=== PATIENT | female | born 1985 | race Caucasian/White ===

== ENCOUNTER 2017-06-06 13:30 | Emergency (ER) | payer BC, MEDICAID ==
[~2017-06-06 13:30] MED LIST: AMOX125S2 PO; VIST25CA PO
[2017-06-06 13:45] VITALS: BP 125/70; PULSE 95; RESP 16; TEMP 98.9; O2SAT 100
[2017-06-06] MEDS ORDERED: SODIUM CHLORIDE 0.9% FLUSH 10 ML FLUSH IVF PRN (14:15)
[2017-06-06 14:33] LABS: AUTOMATED NEUTROPHIL # 4.5 TH/MM3 (1.8-7.7); BASOPHIL % 0.5 % (0.0-2.0); EOSINOPHIL # 0.1 TH/MM3 (0-0.4); EOSINOPHIL % 1.7 % (0.0-4.0); HEMATOCRIT 36.4 % (35.0-46.0); HEMO FLAGS DIFF FINAL; LYMPH % 26.6 % (9.0-44.0); LYMPHOCYTE # 1.8 TH/MM3 (1.0-4.8); MEAN CELL VOLUME 85.2 FL (80.0-100.0); MEAN CORPUSCULAR HEMOGLOBIN 28.1 PG (27.0-34.0); MONO % 5.7 % (0.0-8.0); NEUT % 65.5 % (16.0-70.0); PLATELET COUNT 173 TH/MM3 (150-450); RED BLOOD COUNT 4.27 MIL/MM3 (4.00-5.30); RED CELL DISTRIBUTION WIDTH 15.2 % (11.6-17.2); WHITE BLOOD COUNT 6.9 TH/MM3 (4.0-11.0)
[2017-06-06 14:50] LABS: ALT (GPT) 19 U/L (10-53); ANION GAP 7 MEQ/L (5-15); AST (GOT) 17 U/L (15-37); BICARBONATE 26.1 MEQ/L (21.0-32.0); BLOOD UREA NITROGEN 11 MG/DL (7-18); CHLORIDE 107 MEQ/L (98-107); GLOMERULAR FILTRATION RATE 86 ML/MIN (>89); POTASSIUM 3.6 MEQ/L (3.5-5.1); SODIUM (NA) 140 MEQ/L (136-145)
[2017-06-06 14:54] LABS: ALKALINE PHOSPHATASE 40 U/L (45-117); TOTAL BILIRUBIN ADULT 0.4 MG/DL (0.2-1.0)
--- NOTE | 2017-06-06 14:58 | PD ---
HPI Chief Complaint: Chest Pain Time Seen by Provider: 13:58 Travel History International Travel<30 days: No Contact w/Intl Traveler<30days: No Traveled to known affect area: No History of Present Illness HPI This is a 31-year-old female who presents to the emergency department with 3 hours of discomfort in her right jaw associated with some tingling in her right arm and some palpitations that she says feel like her PVCs that she's had before , constant, moderate severity, with no associated fevers or chills. Patient was concerned about her heart. She has a history of ASD repair in 2005. Her father and they didn't do an autopsy but they thought it was likely related to his heart and he had a history of mitral valve prolapse. She has no history of diabetes, hypertension, hyperlipidemia or smoking and denies any drug use. She does struggle with anxiety. PFSH Past Medical History Anxiety: Yes Cardiac Catheterization: Yes (With umbrella deployed to repair hole in heart) Cardiovascular Problems: Yes (atrial-septal defect) Psychiatric: Yes (PTSD) ?: Not : 3 Para: 3 Miscarriage: 0 : 0 Tubal Ligation: Yes Past Surgical History Section: Yes (x3) Other Surgery: Yes (rhinoplasty) Social History Alcohol Use: Yes (socially) Tobacco Use: No Substance Use: No Allergies-Medications (Allergen,Severity, Reaction): Coded Allergies: Penicillins (Verified Allergy, Mild, Rash, 06/06/17) Sulfa (Sulfonamide Antibiotics) (Unverified Allergy, Mild, Rash, 06/06/17) cefaclor (Unverified Allergy, Mild, Rash, 06/06/17) Reported Meds & Prescriptions Reported Meds & Active Scripts Active No Active Prescriptions or Reported Medications Review of Systems Except as stated in HPI: all other systems reviewed are Neg Physical Exam Narrative GENERAL:Well appearing, no acute distress SKIN: Focused skin assessment warm and dry. HEAD: Atraumatic. Normocephalic. EYES: Pupils equal and round. No injection or drainage. ENT: Moist mucous membranes NECK: Trachea midline. CARDIOVASCULAR: Regular rate and rhythm. No murmur appreciated. RESPIRATORY: Clear to auscultation. Breath sounds equal bilaterally. GASTROINTESTINAL: Abdomen soft, non-tender, nondistended. MUSCULOSKELETAL: No obvious deformities. NEUROLOGICAL: Awake and alert. No obvious cranial nerve deficits. Moving all extremities. PSYCHIATRIC: Appropriate mood and affect; insight and judgment normal. Data Data Last Documented VS Vital Signs Date Time Temp Pulse Resp B/P (MAP) Pulse Ox O2 Delivery O2 Flow Rate FiO2 06/06/17 13:45 98.9 95 16 125/70 (88) 100 Orders Orders Electrocardiogram (06/06/17 14:08) Complete Blood Count With Diff (06/06/17 14:08) Comprehensive Metabolic Panel (06/06/17 14:08) Troponin I (06/06/17 14:08) Chest, Single Ap (06/06/17 14:08) Ecg Monitoring (06/06/17 14:08) Bilateral Bp Monitoring (06/06/17 14:08) Iv Access Insert/Monitor (06/06/17 14:08) Oximetry (06/06/17 14:08) Oxygen Administration (06/06/17 14:08) Sodium Chloride 0.9% Flush (Ns Flush) (06/06/17 14:15) Labs Laboratory Tests Test 06/06/17 14:17 White Blood Count 6.9 TH/MM3 Red Blood Count 4.27 MIL/MM3 Hemoglobin 12.0 GM/DL Hematocrit 36.4 % Mean Corpuscular Volume 85.2 FL Mean Corpuscular Hemoglobin 28.1 PG Mean Corpuscular Hemoglobin Concent 33.0 % Red Cell Distribution Width 15.2 % Platelet Count 173 TH/MM3 Mean Platelet Volume 8.9 FL Neutrophils (%) (Auto) 65.5 % Lymphocytes (%) (Auto) 26.6 % Monocytes (%) (Auto) 5.7 % Eosinophils (%) (Auto) 1.7 % Basophils (%) (Auto) 0.5 % Neutrophils # (Auto) 4.5 TH/MM3 Lymphocytes # (Auto) 1.8 TH/MM3 Monocytes # (Auto) 0.4 TH/MM3 Eosinophils # (Auto) 0.1 TH/MM3 Basophils # (Auto) 0.0 TH/MM3 CBC Comment DIFF FINAL Differential Comment Blood Urea Nitrogen 11 MG/DL Creatinine 0.78 MG/DL Random Glucose 115 MG/DL Total Protein 7.0 GM/DL Albumin 3.4 GM/DL Calcium Level 8.4 MG/DL Alkaline Phosphatase 40 U/L Aspartate Amino Transf (AST/SGOT) 17 U/L Alanine Aminotransferase (ALT/SGPT) 19 U/L Total Bilirubin 0.4 MG/DL Sodium Level 140 MEQ/L Potassium Level 3.6 MEQ/L Chloride Level 107 MEQ/L Carbon Dioxide Level 26.1 MEQ/L Anion Gap 7 MEQ/L Estimat Glomerular Filtration Rate 86 ML/MIN Troponin I LESS THAN 0.02 NG/ML MDM Medical Decision Making Medical Screen Exam Complete: Yes Emergency Medical Condition: Yes Interpretation(s) EKG: Normal sinus rhythm with no ST changes Labs are all reassuring Chest x-rays reassuring Differential Diagnosis Acute coronary syndrome, anxiety, SVT, costochondritis, pneumonia Narrative Course This is a 31-year-old female who presents to the emergency department with right sided jaw pain and right sided arm tingling. Her symptoms would be very atypical for acute coronary syndrome. I suspect her symptoms are anxiety related. EKG was obtained which was nonischemic. Labs are obtained which are reassuring. She is a heart score of 0. I think the patient can safely be discharged to follow-up with her primary care physician. I think any further risk stratification would be difficult to interpret given her absence of risk factors, atypical symptoms and age. Diagnosis Primary Impression: Jaw pain Patient Instructions: General Instructions Additional Instructions: If you develop severe chest pain, shortness of breath, sweating, lightheadedness , dizziness or difficulty breathing return to the emergency department immediately. Followup with your primary care physician in 2-3 days if your symptoms are not resolved. Med/Other Pt SpecificInfo: No Change to Meds Scripts No Active Prescriptions or Reported Meds Disposition: 01 DISCHARGE HOME Condition: Stable Maday Johnson MD Jun 06, 2017 14:58
--- NOTE | 2017-06-06 15:31 | RADRPT ---
EXAM DATE/TIME: 06/06/2017 14:21 [facility] COMPARISON: No previous studies available for comparison. INDICATIONS : Chest pain. MEDICAL HISTORY : None. SURGICAL HISTORY : Cardiac cath. ENCOUNTER: Initial ACUITY: 1 day PAIN SCORE: 10/10 LOCATION: Bilateral chest FINDINGS: A single view of the chest demonstrates the lungs to be symmetrically aerated without evidence of mas s, infiltrate or effusion. The cardiomediastinal contours are unremarkable. Osseous structures are intact. CONCLUSION: 1. No acute cardiopulmonary disease. Edy Chaudhry MD on June 06, 2017 at 15:29 Board Certified Radiologist. This report was verified electronically.
--- NOTE | 2017-06-07 14:37 | EKG ---
Date Performed: 06/06/2017 Time Performed: 14:17:04 PTAGE: 31 years EKG: Sinus rhythm NORMAL ECG Compared to prior tracing no significant change PREVIOUS TRACING : 05/22/2013 10.53 DOCTOR: Leah Catherine Interpretating Date/Time 06/07/2017 14:31:59
== END 2017-06-06 16:05 | disposition home or self-care (01) ==
LOC: NEPD 13:30
DX: R68.84 Jaw pain (principal); R20.2 Paresthesia of skin; R00.2 Palpitations; F41.9 Anxiety disorder, unspecified; F43.10 Post-traumatic stress disorder, unspecified; Z88.0 Allergy status to penicillin; Z88.2 Allergy status to sulfonamides
CPT/HCPCS: 71010; 80053; 84484; 85025; 93005; 99285

== ENCOUNTER 2017-08-08 09:32 | Emergency (ER) | payer BC, MEDICAID ==
[~2017-08-08] VITALS: Ht 170.2 cm; Wt 77.0 kg
[2017-08-08 09:35] VITALS: BP 114/59; PULSE 95; RESP 16; TEMP 98.2; O2SAT 100
--- NOTE | 2017-08-08 10:36 | RADRPT ---
EXAM DATE/TIME: 08/08/2017 10:21 [facility] COMPARISON: CHEST SINGLE AP, June 06, 2017, 14:21. INDICATIONS : Short of Breath MEDICAL HISTORY : None. SURGICAL HISTORY : Cardiac Cath ENCOUNTER: Initial ACUITY: 1 day PAIN SCORE: 0/10 LOCATION: chest FINDINGS: A single view of the chest demonstrates the lungs to be symmetrically aerated without evidence of mas s, infiltrate or effusion. The cardiomediastinal contours are unremarkable. Radiopaque circular for eign body overlying chest. Osseous structures are intact. CONCLUSION: No acute disease. Benitez Salmon MD FACR on August 08, 2017 at 10:34 Board Certified Radiologist. This report was verified electronically.
--- NOTE | 2017-08-08 11:01 | PD ---
HPI Chief Complaint: Cold / Flu Symptoms Time Seen by Provider: 09:55 Travel History International Travel<30 days: No Contact w/Intl Traveler<30days: No Traveled to known affect area: No History of Present Illness HPI This is a 31-year-old female here with flulike illness and exposure to influenza A and B. Both of her sons and spouse have diagnosed influenza. She is reporting cough, congestion, fever for the last 3 days. She also reports that she felt palpitations several days ago while lying in bed. Currently denies any palpitations, chest pain or shortness of breath. Symptoms severity is mild. No aggravating or alleviating factors. PFSH Past Medical History Anxiety: Yes Cardiac Catheterization: Yes (With umbrella deployed to repair hole in heart) Cardiovascular Problems: Yes (atrial-septal defect) Diminished Hearing: No Psychiatric: Yes (PTSD) Tetanus Vaccination: < 5 Years ?: Not LMP: LAST WEEK : 3 Para: 3 Miscarriage: 0 : 0 Tubal Ligation: Yes Past Surgical History Section: Yes (x3) Other Surgery: Yes (rhinoplasty) Social History Alcohol Use: Yes (socially) Tobacco Use: No Substance Use: No Allergies-Medications (Allergen,Severity, Reaction): Coded Allergies: Penicillins (Verified Allergy, Mild, Rash, 08/08/17) Sulfa (Sulfonamide Antibiotics) (Unverified Allergy, Mild, Rash, 08/08/17) cefaclor (Unverified Allergy, Mild, Rash, 08/08/17) Reported Meds & Prescriptions Reported Meds & Active Scripts Active No Active Prescriptions or Reported Medications Review of Systems Except as stated in HPI: all other systems reviewed are Neg General / Constitutional: Positive: Fever Eyes: No: Visual changes HENT: Positive: Sore Throat, Congestion, No: Headaches Cardiovascular: No: Chest Pain or Discomfort Respiratory: Positive: Cough Gastrointestinal: No: Abdominal Pain Genitourinary: No: Dysuria Musculoskeletal: No: Pain Skin: No Rash Physical Exam Narrative GENERAL: Alert and well-appearing 31-year-old female SKIN: Warm and dry. HEAD: Normocephalic. EYES: No injection or drainage. Ear/nose/throat: No TM erythema. Clear nasal discharge. Mild pharyngeal erythema without tonsillar temperature fever a seated. NECK: Supple, trachea midline. No JVD or lymphadenopathy. CARDIOVASCULAR: Regular rate and rhythm without murmurs, gallops, or rubs. RESPIRATORY: Breath sounds equal bilaterally. No accessory muscle use. GASTROINTESTINAL: Abdomen soft, non-tender, nondistended. MUSCULOSKELETAL: No cyanosis, or edema. BACK: Nontender without obvious deformity. No CVA tenderness. Data Data Last Documented VS Vital Signs Date Time Temp Pulse Resp B/P (MAP) Pulse Ox O2 Delivery O2 Flow Rate FiO2 08/08/17 09:35 98.2 95 16 114/59 (77) 100 Orders Orders Influenzae A/B Antigen (08/08/17 10:08) Chest, Single Ap (08/08/17 ) Electrocardiogram (08/08/17 ) MDM Medical Decision Making Medical Screen Exam Complete: Yes Emergency Medical Condition: Yes Differential Diagnosis Influenza, bronchitis, pneumonia, arrhythmia Narrative Course This is a 31-year-old female here with flulike illness and exposure to influenza A and B. Both of her sons and spouse have diagnosed influenza. She is reporting cough, congestion, fever for the last 3 days. She also reports that she felt palpitations several days ago while lying in bed. Currently denies any palpitations, chest pain or shortness of breath. She is well- appearing. EKG shows sinus rhythm, rate 76, no ischemic changes, no ectopy. Chest x-ray shows no abnormalities. Influenza is negative. All findings were discussed with patient. She is outside parameters for treatment with Tamiflu. All findings were discussed with patient. She was encouraged to stay well hydrated and follow-up with her primary doctor. She is to return prior she develops new or worsening symptoms. Diagnosis Primary Impression: Influenza-like illness Referrals: Primary Care Physician Additional Instructions: Tylenol and ibuprofen for fever and pain. Stay well hydrated by drinking plenty of fluids. Follow up with her primary doctor for recheck. Return to the emergency department if you have new or worsening symptoms. Scripts No Active Prescriptions or Reported Meds Disposition: 01 DISCHARGE HOME Condition: Stable Deana Marino Aug 08, 2017 11:01
--- NOTE | 2017-08-08 21:54 | EKG ---
Date Performed: 08/08/2017 Time Performed: 10:16:40 PTAGE: 31 years EKG: Sinus rhythm NORMAL ECG PREVIOUS TRACING : 06/06/2017 14.17 DOCTOR: Bambi Leon Interpretating Date/Time 08/08/2017 21:52:27
== END 2017-08-08 11:08 | disposition home or self-care (01) ==
LOC: PHEFT 09:32
DX: J11.1 Influenza due to unidentified influenza virus with other respiratory manifestations (principal)
CPT/HCPCS: 71045; 87804; 93005; 99285